=== PATIENT | male | born 1965 | race Caucasian/White ===

== ENCOUNTER 2017-05-25 11:31 | Emergency (ER) | payer OTHER ==
[2017-05-25 11:42] VITALS: PULSE 54; TEMP 98.3; BMI 27.8
--- NOTE | 2017-05-25 13:11 | PDOC ---
History of Present Illness <Ray Tanner - Last Filed: 05/25/17 14:56> - General History Source: Patient Exam Limitations: No Limitations - History of Present Illness Initial Comments: 05/25/17 13:12 51 y/o M with no PMHx presents to the ED with headache for 3 days. Patient reports drinking heavily 4 days ago and falling forward, hitting his head. He does not remember the incident because he was intoxicated, but he states his family said he did not lose consciousness. Patient was bleeding after hitting his head, and states his brother cleaned his cut with alcohol and put him to bed. Patient reports that he woke up the next morning he felt fine. However, later that day he began to have a headache and pain at the site of the laceration. His cleaned it with peroxide and AD+D. He rates the pain as a constant 7 out of 10. He took Advil with temporary relief. He also reports associated neck pain and dizziness, which is worsened with movement and walking around. Patient denies fever, chills, nausea, vomiting, diarrhea. Denies chest pain, SOB. Denies numbness, tingling, change in vision or hearing. <Nita Vergara - Last Filed: 05/25/17 14:58> - General Chief Complaint: Headache Stated Complaint: HEAD INJURY Time Seen by Provider: 05/25/17 12:29 Past History - Past Medical History Other medical history: DENIES. - Suicide/Smoking/Psychosocial Hx Smoking Status: No Smoking History: Never smoked Number of Cigarettes Smoked Daily: 0 Hx Alcohol Use: Yes Drug/Substance Use Hx: No Substance Use Type: Alcohol <Ray Tanner - Last Filed: 05/25/17 14:56> <Nita Vergara - Last Filed: 05/25/17 14:58> - Past Medical History Allergies/Adverse Reactions: Allergies Allergy/AdvReac Type Severity Reaction Status Date / Time No Known Allergies Allergy Verified 05/25/17 11:40 Home Medications: Ambulatory Orders NK [No Known Home Medication] 05/25/17 Review of Systems - Review of Systems Constitutional: No: Chills, Fever, Night Sweats HEENTM: No: Recent change in vision Respiratory: No: Shortness of Breath Cardiac (ROS): No: Chest Pain ABD/GI: No: Nausea, Vomiting Neurological: Yes: Headache. No: Tingling, Weakness, Ataxia, Dizziness All Other Systems: Reviewed and Negative <Ray Tanner - Last Filed: 05/25/17 14:56> *Physical Exam - Vital Signs Last Vital Signs Temp Pulse Resp BP Pulse Ox 98.3 F 54 L 18 163/96 99 05/25/17 11:40 05/25/17 11:40 05/25/17 11:40 05/25/17 11:40 05/25/17 11:40 <Ray Tanner - Last Filed: 05/25/17 14:56> - Vital Signs Last Vital Signs Temp Pulse Resp BP Pulse Ox 98.3 F 54 L 18 163/96 99 05/25/17 11:40 05/25/17 11:40 05/25/17 11:40 05/25/17 11:40 05/25/17 11:40 - Physical Exam Comments: 05/25/17 13:12 General: Patient is alert and in no acute distress. Speech is clear and appropriate. Head: Linear, healing, 5 cm laceration on left parietal scalp. Resolving ecchymosis but no bleeding or discharge from the site. HEENT: Pupils are equal round and reactive to light, extraocular movements are intact. The tympanic membranes are clear, no hemotympanum. No facial deformity/ tenderness, no septal hematoma. The oropharynx is clear. Neck: The trachea is midline, there is no stridor. There is no midline cervical spine tenderness, full range of motion of neck. Chest: Nontender, no ecchymosis or abrasions. Heart: S1-S2, regular rate and rhythm. No murmurs. Lungs: Clear to auscultation bilaterally. Symmetric chest rise. Abdomen: Soft/nontender/nondistended. Bowel sounds are normal. There is no abdominal or flank ecchymosis. Back/Pelvis: There is no midline spinal tenderness or step-off. Pelvis is stable and nontender. Extremities: There is no extremity deformity or joint swelling. No focal bony tenderness throughout. 2+ distal pulses throughout. Neuro: Alert and oriented x3. Cranial nerves II through XII are intact. 5 out of 5 motor strength x4 extremities. [id number] is intact. No pronator drift. Gait is stable. Skin: No abrasions/hematomas. Psych: Affect is appropriate. <Nita Vergara - Last Filed: 05/25/17 14:58> ED Treatment Course - RADIOLOGY Radiology Studies Ordered: Category Date Time Status HEAD CT WITHOUT CONTRAST [CT] Stat CT Scan 05/25/17 12:51 Ordered <Ray Tanner - Last Filed: 05/25/17 14:56> - RADIOLOGY Radiograph Interpretation: 05/25/17 14:[address] Duran Nazario Impression: No acute intracranial hemorrhage, mass effects or hydrocephalus. <Nita Vergara - Last Filed: 05/25/17 14:58> Medical Decision Making - Medical Decision Making 05/25/17 13:08 A portion of this note was documented by scribe services under my direction. I have reviewed the details of the note, within reason, and agree with the documentation with the following case summary and management plan written by me. 51-year-old male with no severe past medical history presents with persistence occipital/parietal headache in the setting of mechanical fall 3 days ago while out drinking with his family members. Patient fell and his head struck a pole, there was no loss of consciousness per family, but the patient has had persistent and progressive headaches since then without vision change/speech change/focal deficits/nausea/vomiting/confusion. Sustained scalp laceration that was Cleaned by his , no other complaints of fevers or chills. Vital signs within normal limits, blood pressure notably 160/90 Healing left parietal scalp laceration without evidence of infection or underlying bony abnormality Neurologically intact Remainder trauma exam is normal 51-year-old male with minor to moderate headache injury 3 days ago, now with persistent mild headache. Question concussion, rule out CVI. Blood pressure slightly elevated, will recheck. CT head Update tetanus Reassess 05/25/17 14:54 CT negative for TBI. Concussions precautions discussed. at bedside, understand return criteria. <Ray Tanner - Last Filed: 05/25/17 14:56> *DC/Admit/Observation/Transfer <Ray Tanner - Last Filed: 05/25/17 14:56> - Attestations Scribe Attestion: 05/25/17 13:12 Documentation prepared by Nita Vergara, acting as medical record technician for Ray Tanner MD. <Nita Vergara - Last Filed: 05/25/17 14:58> Diagnosis at time of Disposition: Superficial laceration of scalp Qualifiers: Encounter type: initial encounter Qualified Code(s): S01.01XA - Laceration without foreign body of scalp, initial encounter Closed head injury Qualifiers: Encounter type: initial encounter Qualified Code(s): S09.90XA - Unspecified injury of head, initial encounter - Discharge Dispostion Disposition: HOME Condition at time of disposition: Stable - Referrals Referrals: Casper Whitney MD [Staff Physician] - - Patient Instructions Printed Discharge Instructions: DI for Closed Head Injury, DI for Concussion Additional Instructions: Stay hydrated. Tylenol 1000 mg every 8 hours and/or ibuprofen 600 mg every 8 hours as needed for pain. Bacitracin to the wound until fully healed. Keep clean and dry. A CT scan shows no evidence of bleeding or injury. Your symptoms could be consistent with a concussion. It is recommended that you have physical rest, avoiding any activities that may increase the likelihood of you reinjuring your head. Cognitive rest is also recommended, avoid prolonged monitor exposure, reading, or loud noises. You should follow up with your primary doctor and/or a neurologist as soon as possible regarding today's emergency department visit. Return to the emergency department for any new or concerning symptoms, particularly worsening headache, vomiting or confusion, worsening sleepiness, focal weakness.
[2017-05-25] MEDS ORDERED: DIPHTH,PERTUSS(ACELL),TET 0.5 ML DISP.SYRIN IM ONE (13:16)
[2017-05-25 15:12] VITALS: BP 154/72
== END 2017-05-25 15:02 | disposition home or self-care (01) ==
LOC: JER 11:31
PROC: 3E0234Z Introduction of Serum, Toxoid and Vaccine into Muscle, Percutaneous Approach (ICD-10-PCS; principal; 2017-05-25)
DX: S01.01XA Laceration without foreign body of scalp, initial encounter (principal); W01.198A Fall on same level from slipping, tripping and stumbling with subsequent striking against other object, initial encounter; Y93.89 Activity, other specified; Y92.89 Other specified places as the place of occurrence of the external cause; Y99.8 Other external cause status
CPT/HCPCS: 70450-TC; 90471; 90715; 99283-25

== ENCOUNTER 2018-07-03 20:42 | Inpatient (IN) | payer OTHER ==
--- NOTE | 2018-07-03 21:30 | PDOC ---
Attending Attestation - HPI HPI: 07/03/18 22:01 The patient is a 52-year-old male with no significant past medical history presents to the emergency department with redness to the right hand. The patient presents with 1 day of redness and pain to the dorsum of the right hand. The patient reports he is unable to flexion his arm, reports the pain is aggravated with touching the affected area, denies any known modifying factor that alleviates the pain. Denies any injury, trauma to the hand. Denies fever, chills, chest pain, shortness of breath, urinary symptoms or changes in bowel habits. Allergies: NKDA Social history: No tobacco or IVDU reported. Reports the use of alcohol. PCP: None. - Physicial Exam PE: 07/03/18 21:54 GENERAL: Awake, alert, and fully oriented, in no acute distress HEAD: No signs of trauma EYES: PERRLA, EOMI, sclera anicteric, conjunctiva clear ENT: Auricles normal inspection, hearing grossly normal, nares patent, oropharynx clear without exudates. Moist mucosa NECK: Normal ROM, supple, no lymphadenopathy, JVD, or masses LUNGS: Breath sounds equal, clear to auscultation bilaterally. No wheezes, and no crackles HEART: Regular rate and rhythm, normal S1 and S2, no murmurs, rubs or gallops ABDOMEN: Soft, nontender, normoactive bowel sounds. No guarding, no rebound. No masses EXTREMITIES: Normal range of motion, no edema. No clubbing or cyanosis. No cords, erythema, or tenderness NEUROLOGICAL: Cranial nerves II through XII grossly intact. Normal speech, normal gait SKIN: Right hand cellulitis of the dorsum of the hand from the MCP to the wrist , dry skin across and 1 small pinpoint abrasion with skin breakdown, no fluctuance or induration, hot to touch. Rest of the exam: Warm, Dry, normal turgor, no rashes or lesions noted. - Medical Decision Making 07/03/18 21:[address] William for admission. 07/03/18 21:[address] William. <Suzanne Srinivasan - Last Filed: 07/03/18 22:01> - Resident Resident Name: Trip Cardona - ED Attending Attestation I have performed the following: I have examined & evaluated the patient, The case was reviewed & discussed with the resident, I agree w/resident's findings & plan, Exceptions are as noted - Medical Decision Making 07/03/18 21:30 I, Dr. Cindy Seay, DO, attest that this document has been prepared under my direction and personally reviewed by me in its entirety. I further attest, that it accurately reflects all work, treatment, procedures and medical decision -making performed by me. 07/03/18 22:09 a/p: 52 yo male with R hand cellulitis -no nidus, no injury -low grade fever -will send labs -will start iv abx -resident discussed the case with Dr. William who will see the patient in consult -pt will need admission for iv abx 07/03/18 22:43 cxr clear hand xray without acute findings cbc without elevated wbc pending chemistry <Cindy Seay - Last Filed: 07/04/18 00:10> Heart Score/ECG Review - ECG Intrepretation Comment:: 07/04/18 00:09 sinus at 61, nl axis, incomplete rbbb, no acute st/t wave findigns <Cindy Seay - Last Filed: 07/04/18 00:10>
[2018-07-03] MEDS ORDERED: ACETAMINOPHEN 1000 MG/100 ML VIAL (NON FORMULARY) IVPB ONE (21:50)
--- NOTE | 2018-07-03 21:54 | PDOC ---
History of Present Illness - General Chief Complaint: Redness To Affected Area Stated Complaint: SWELLING TO HAND Time Seen by Provider: 07/03/18 21:00 - History of Present Illness Initial Comments: The patient is a 52M w/ no reported PMH presents w/ 1d of R dorsal hand redness and pain. He denies any trauma/injury/abrasion to his hand. Reports pain with palpation of dorsum of wrist/hand, pain w/ flexion/extension of wrist as well as digits. No changes in sensation. Endorses recent flu-like symptoms that are resolving; Denies fevers/chills over last 3d, N/V, chest pain, SOB, abdominal pain, or other rash/lesion PMH: Denies SH: Denies tobacco; Social EtOH Meds: Denies Allergies: Denies 07/03/18 22:53 Past History - Past Medical History Allergies/Adverse Reactions: Allergies Allergy/AdvReac Type Severity Reaction Status Date / Time No Known Allergies Allergy Verified 07/03/18 20:52 Home Medications: Ambulatory Orders NK [No Known Home Medication] 05/25/17 COPD: No - Suicide/Smoking/Psychosocial Hx Smoking Status: No Smoking History: Never smoked Number of Cigarettes Smoked Daily: 0 Hx Alcohol Use: Yes Drug/Substance Use Hx: No Substance Use Type: Alcohol Review of Systems - Review of Systems Able to Perform ROS?: Yes Comments:: GENERAL/CONSTITUTIONAL: +reported recent flu; No fever or chills over last 2- 3d. No weakness HEAD, EYES, EARS, NOSE AND THROAT: No change in vision. No ear pain or discharge. No sore throat CARDIOVASCULAR: No chest pain or shortness of breath RESPIRATORY: No cough, wheezing, or hemoptysis GASTROINTESTINAL: No nausea, vomiting, diarrhea or constipation GENITOURINARY: No dysuria, frequency, or change in urination MUSCULOSKELETAL: +R wrist pain with flexion/extension SKIN: Dorsum of R hand redness/pain NEUROLOGIC: No headache, vertigo, loss of consciousness, or change in strength/ sensation ENDOCRINE: No increased thirst. No abnormal weight change HEMATOLOGIC/LYMPHATIC: No anemia, easy bleeding, or history of blood clots ALLERGIC/IMMUNOLOGIC: No hives or skin allergy 07/03/18 21:50 Is the patient limited Jamaican proficient: No *Physical Exam - Vital Signs Last Vital Signs Temp Pulse Resp BP Pulse Ox 99.9 F H 81 18 139/91 97 07/03/18 20:52 07/03/18 20:52 07/03/18 20:52 07/03/18 20:52 07/03/18 20:52 - Physical Exam Comments: GENERAL: Awake, alert, and fully oriented, in no acute distress HEAD: No signs of trauma, normocephalic, atraumatic EYES: PERRLA, EOMI, sclera anicteric, conjunctiva clear ENT: Hearing grossly normal, nares patent, oropharynx clear without exudates. Moist mucosa LUNGS: No distress, speaks full sentences, clear to auscultation bilaterally HEART: Regular rate and rhythm, normal S1 and S2, no murmurs appreciated, peripheral pulses normal and equal bilaterally ABDOMEN: Soft, nontender, normoactive bowel sounds. No guarding, no rebound EXTREMITIES : Cellulitis as below; R dorsal wrist TTP; Pain with AROM/PROM of R wrist as well as extremes of extension/flexion of digits. Compartments soft. 2+ cap refill NEUROLOGICAL: Cranial nerves II through XII grossly intact. Normal speech, normal gait, no focal sensorimotor deficits SKIN: Erythema over dorsum of R wrist from MCP to immediately proximal to carpels; Warmth w/o underlying induration or fluctuance 07/03/18 21:51 ED Treatment Course - LABORATORY CBC & Chemistry Diagram: 07/03/18 22:20 07/03/18 22:20 - RADIOLOGY Radiology Studies Ordered: Category Date Time Status CHEST X-RAY PORTABLE* [RAD] Stat Radiology 07/03/18 21:48 Ordered Medical Decision Making - Medical Decision Making The patient is a 52M who presents for evaluation of 1d of R dorsal hand cellulitis w/o fluctuance, vascular compromise, or toxic appearance ED Course CMP, CBC, T/S, blood Cx ECG R hand XR Ofirmev 1g IV once Vancomycin 1g IV for cellulitis 07/03/18 21:53 No leukocytosis No anemia XR w/o evidence of osteo, SQ emphysema, or effusion Plan for admission for IV abx for R hand cellulitis; pending chemistry results 07/03/18 22:40 Cr 1.3, no reference for baseline Lytes wnl 07/03/18 23:17 Dispo: Admit 07/03/18 23:22 *DC/Admit/Observation/Transfer Diagnosis at time of Disposition: Cellulitis Qualifiers: Site of cellulitis: extremity Site of cellulitis of extremity: upper extremity Laterality: right Qualified Code(s): L03.113 - Cellulitis of right upper limb - Discharge Dispostion Condition at time of disposition: Good Decision to Admit order: Yes - Referrals - Patient Instructions - Post Discharge Activity
--- NOTE | 2018-07-03 22:14 | CONSULT ---
Consult Consult Specialty:: Hand and Microsurgery Reason for Consultation:: hand cellulitis - History of Present Illness Chief Complaint: hand abscess History of Present Illness: 52-year-old male with no significant past medical history presents to the emergency department with redness to the right hand. The patient presents with 1 day of redness and pain to the dorsum of the right hand. The patient reports he is unable to flexion his arm, reports the pain is aggravated with touching the affected area, denies any known modifying factor that alleviates the pain. Denies any injury, trauma to the hand. Denies fever, chills, chest pain, shortness of breath, urinary symptoms or changes in bowel habits. we were asked to assess. - History Source History Provided By: Patient, Medical Record Limitations to Obtaining History: No Limitations - Alcohol/Substance Use Hx Alcohol Use: Yes - Smoking History Smoking history: Never smoked Aproximately how many cigarettes per day: 0 Home Medications - Allergies Allergies/Adverse Reactions: Allergies Allergy/AdvReac Type Severity Reaction Status Date / Time No Known Allergies Allergy Verified 07/03/18 20:52 - Home Medications Home Medications: Ambulatory Orders Amoxicillin/Potassium Clav [Augmentin 875-125 Tablet] 1 each PO BID #10 tablet 07/05/18 Review of Systems - Review of Systems Constitutional: denies: Chills, Fever Eyes: denies: Blind Spots, Recent Change in Vision HENT: denies: Difficult Swallowing, Throat Pain Neck: denies: Pain on Movement, Tenderness Cardiovascular: denies: Chest Pain, Palpitations Respiratory: denies: Cough, SOB Gastrointestinal: reports: Abdominal Pain. denies: Diarrhea, Dysphagia Genitourinary: denies: Discharge, Dysuria Breasts: reports: No Symptoms Reported. denies: Pain Musculoskeletal: denies: Muscle Cramps, Muscle Weakness Integumentary: denies: Lesions, Lump, Rash Neurological: denies: Seizure, Syncope Endocrine: denies: Unexplained Weight Gain, Unexplained Weight Loss Hematology/Lymphatic: denies: Easily Bruised, Excessive Bleeding Psychiatric: denies: Anxiety, Depression Physical Exam Vital Signs: Vital Signs Temperature 99.9 F H 07/03/18 20:52 Pulse Rate 81 07/03/18 20:52 Respiratory Rate 18 07/03/18 20:52 Blood Pressure 139/91 07/03/18 20:52 O2 Sat by Pulse Oximetry (%) 97 07/03/18 20:52 Constitutional: Yes: Well Nourished, No Distress, Calm Eyes: Yes: Conjunctiva Clear, EOM Intact HENT: Yes: Atraumatic, Normocephalic Neck: Yes: Supple, Trachea Midline Cardiovascular: Yes: Regular Rate and Rhythm, S1, S2 Respiratory: Yes: Regular, CTA Bilaterally Gastrointestinal: Yes: Normal Bowel Sounds, Soft. No: Tenderness, Tenderness, Epigastrium ...Rectal Exam: Yes: Deferred Renal/: No: CVA Tenderness - Left, CVA Tenderness - Right Breast(s): No: Dimpling, Gynecomastia, Nipple Inversion Musculoskeletal: No: Muscle Pain, Muscle Weakness Extremities: Yes: Erythema (right hand dorsum, no fluctuance). No: Cool, Cyanosis Edema: No Peripheral Pulses WNL: Yes Integumentary: No: Jaundice, Rash Neurological: Yes: Alert, Oriented Psychiatric: Yes: Alert, Oriented Problem List - Problems (1) Cellulitis of right hand Assessment/Plan: right ahnd cellulitis in a healthy male, resoling with IV antibiotics, no indication for acute surgical intervention ID consult continue PO antibiotic Thank you for the opportunity to participate in the care of this patient. Code(s): L03.113 - CELLULITIS OF RIGHT UPPER LIMB (2) Cellulitis Code(s): L03.90 - CELLULITIS, UNSPECIFIED Qualifiers: Site of cellulitis: extremity Site of cellulitis of extremity: upper extremity Laterality: right Qualified Code(s): L03.113 - Cellulitis of right upper limb
[2018-07-03 22:31] LABS: HEMATOCRIT 46.3 % (35.4-49); HEMOGLOBIN 16.4 GM/dL (11.7-16.9); MCH 31.2 pg (25.7-33.7); MCHC 35.3 g/dl (32.0-35.9); MEAN CELL VOLUME 88.3 fl (80-96); MEAN PLT VOLUME 10.1 fl (7.5-11.1); PLATELET COUNT 176 K/MM3 (134-434); RBC 5.25 M/mm3 (4.00-5.60); RDW 13.1 % (11.9-15.9); WHITE BLOOD COUNT 9.4 K/mm3 (4.0-10.0)
[2018-07-03 22:51] LABS: ALK PHOS 128 U/L (45-117); ANION GAP 6 MMOL/L (8-16); BILIRUBIN,TOTAL 0.7 mg/dL (0.2-1); BLOOD UREA NITROGEN 15 mg/dL (7-18); CALCIUM 8.9 mg/dL (8.5-10.1); CHLORIDE 104 mmol/L (98-107); CO2 29 mmol/L (21-32); CREATININE 1.3 mg/dL (0.55-1.3); GLUCOSE,RANDOM 104 mg/dL (74-106); SGOT/AST 30 U/L (15-37); SGPT/ALT 53 U/L (13-61); SODIUM 139 mmol/L (136-145); TOT PROT 7.9 g/dl (6.4-8.2)
[2018-07-03] MEDS ORDERED: ACETAMINOPHEN INJECTION 100 ML IVPB ONE (23:08)
--- NOTE | 2018-07-03 23:34 | PN ---
Teaching Attending Note Name of Resident: Melvina Thomason ATTENDING PHYSICIAN STATEMENT I saw and evaluated the patient. I reviewed the resident's note and discussed the case with the resident. I agree with the resident's findings and plan as documented. SUBJECTIVE: Patient is a 52 year old man with no significant past PMH presents to the ER with redness to the right hand. The patient presents with 1 day of redness and pain to the dorsum of the right hand. The patient reports he is unable to flexion his arm, reports the pain is aggravated with touching the affected area , denies any known modifying factor that alleviates the pain. Denies any injury , trauma to the hand. Denies fever, chills, chest pain, shortness of breath, urinary symptoms or changes in bowel habits. 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 OBJECTIVE: Alert Vital Signs Period Temp Pulse Resp BP Sys/Berg Pulse Ox Last 24 Hr 99.9 F 81 18 139/91 97 HEENT: No Jaundice, eye redness or discharge, PERRLA, EOMI. Normocephalic, atraumatic. External ears are normal and hearing is grossly intact. No nasal discharge. Neck: Supple, nontender. No palpable adenopathy or thyromegaly. No JVD Chest: Good effort. Clear to auscultation and percussion. Heart: Regular. No S3, rub or murmur Abdomen: Not distended, soft, nontender and no HSM. No rebound or guarding. Normoactive bowel sounds. Ext: Peripheral pulses intact. No leg edema. Erythema dorsum of right hand, tender and fluctuant. Pain worse with movement and clenching fist. Skin: Warm and dry. No petechiae, rash or ecchymosis. Neuro: Alert. Oriented x3. CN 2-12 grossly intact. Sensation grossly intact in all four extremities and DTR are symmetric. Home Medications Medication Instructions Recorded NK [No Known Home Medication] 05/25/17 Abnormal Lab Results 07/03/18 22:20 Anion Gap 6 L Alkaline Phosphatase 128 H ASSESSMENT AND PLAN: 1. Right hand cellulitis - Will check uric acid level, Lyme studies, get CT of hand, treat with Naprosyn and Ancef. Consult practice surgery. 2. Obesity - Will provide patient all the necessary assistance, counseling and positive reinforcement to facilitate weight loss. Consult medical csr. 3. DVT prophylaxis - Lovenox 40 mg SQ q 24 hours. 4. Advance directives - Full code
[2018-07-04] MEDS ORDERED: NAPROXEN 250 MG TABLET (FP) PO PRN (00:14)
--- NOTE | 2018-07-04 00:37 | HP ---
CHIEF COMPLAINT: R Hand pain PCP: HISTORY OF PRESENT ILLNESS: 52 y/o M with No significant PMHx presents with one day hx of R hand pain. Patient first noticed R wrist swelling accompanied by erythema and pain yesterday (07/02) at Noon. His swelling and erythema increased during the day and he tried hot water and massage which provided some relief. The pain however remained constant; described as 9/10 Throbbing pain that does not travel and is worse with any movement. Denies any recent trauma, animal bites, new pets or infestations. Patient mentions a similar episode in the past however today is more severe. Denies any accompanying fevers, chills, chest pain, SOB, nausea, vomiting, diarrhea, constipation. 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 Moist mucous membranes. NECK: No JVD LUNGS: CTAB. No wheezes, no crackles HEART: Regular rate and rhythm, normal S1 and S2 without murmur ABDOMEN: Soft, nontender, not distended, + bowel sounds, no guarding UPPER EXTREMITIES: 2+ pulses. R Dorsal wrist with 7x7cm Warm, erythematous patch , No induration, fluctuance, or active drainage, Painful with movement. Left Hand unremarkable. LOWER EXTREMITIES: No peripheral edema. NEUROLOGICAL: Cranial nerves II-XII intact. Normal speech. Normal gait. Gross sensation intact throughout. 5/5 Muscle strength to Elbow flexion/extension, Shoulder abduction, Hip flexion, Knee flexion/extension, Dorsiflexion, plantarflexion. Patient unable to perform R Handgrip, R Wrist Flexion/extension/ Sidebending due to pain. 5/5 muscle strength to Left Handgrip, Left wrist flexion/extension. SKIN: Warm, dry Laboratory Results - last 24 hr 07/03/18 07/03/18 07/03/18 22:20 22:20 22:20 WBC 9.4 RBC 5.25 Hgb 16.4 Hct 46.3 MCV 88.3 MCH 31.2 MCHC 35.3 RDW 13.1 Plt Count 176 MPV 10.1 Sodium 139 Potassium 4.0 Chloride 104 Carbon Dioxide 29 Anion Gap 6 L BUN 15 Creatinine 1.3 Creat Clearance w eGFR 58.43 Random Glucose 104 Calcium 8.9 Total Bilirubin 0.7 AST 30 ALT 53 Alkaline Phosphatase 128 H Total Protein 7.9 Albumin 4.0 Blood Type O POSITIVE Antibody Screen Negative Active Medications Enoxaparin Sodium (Lovenox -) 40 mg SQ DAILY ELIS Cefazolin Sodium 500 mg/ (Dextrose) 50 mls @ 50 mls/30 min IVPB Q8H-IV ELIS Sodium Chloride (Normal Saline -) 1,000 mls @ 100 mls/hr IV ASDIR ELIS Naproxen (Naprosyn -) 250 mg PO Q4H PRN PRN Reason: PAIN LEVEL 6-10 ASSESSMENT/PLAN: 52 y/o M with No significant PMHx presents with one day hx of R Wrist Swelling and Pain, found to have R Hand Cellulitis and will be admitted to Med-Surg #R Hand Cellulitis -Given 1 dose of Vanco in the ED -Start on Cefazolin 500mg Q8H -Hand Wrist XRay pending official Read -CT RUE without contrast ordered -IV NS @ 100 mls/hr -Pain control via Naproxen -Blood Cultures pending -Uric acid, Lyme Studies ordered -Hand Surgery (Dr. William) Consulted by ED -ID (Dr. Ng) Consulted #FEN -IV NS @ 100 mls/hr -Lytes WNL -Regular Diet #PPx -DVT: Lovenox Dispo: Admit to Med-Surg Visit type - Emergency Visit Emergency Visit: Yes ED Registration Date: 07/03/18 Care time: The patient presented to the Emergency Department on the above date and was hospitalized for further evaluation of their emergent condition. - New Patient This patient is new to me today: Yes Date on this admission: 07/04/18 - Critical Care Critical Care patient: No
[2018-07-04] MEDS: SODIUM CHLORIDE 1,000 ML IV SCH (01:28)
[2018-07-04] MEDS: CEFAZOLIN 500 MG in DEXTROSE 5%-WATER - 50 ML IVPB SCH ×3 (02:33→18:52)
[2018-07-04 06:03] LABS: EOS % 1.2 % (0-4.5); HEMATOCRIT 42.9 % (35.4-49); HEMOGLOBIN 14.3 GM/dL (11.7-16.9); LYMPH % 41.4 % (8-40); MCH 29.6 pg (25.7-33.7); MCHC 33.3 g/dl (32.0-35.9); MEAN CELL VOLUME 88.9 fl (80-96); MEAN PLT VOLUME 9.6 fl (7.5-11.1); NEUT % 41.4 % (42.8-82.8); PLATELET COUNT 143 K/MM3 (134-434); RBC 4.82 M/mm3 (4.00-5.60); WHITE BLOOD COUNT 7.5 K/mm3 (4.0-10.0)
[2018-07-04 07:08] LABS: ALBUMIN 3.2 g/dl (3.4-5.0); ALK PHOS 98 U/L (45-117); ANION GAP 6 MMOL/L (8-16); BILIRUBIN,TOTAL 0.8 mg/dL (0.2-1); BLOOD UREA NITROGEN 17 mg/dL (7-18); CALCIUM 8.3 mg/dL (8.5-10.1); CHLORIDE 108 mmol/L (98-107); CO2 26 mmol/L (21-32); GLUCOSE,RANDOM 94 mg/dL (74-106); MAGNESIUM 2.3 mg/dL (1.8-2.4); PHOSPHOROUS 4.2 mg/dL (2.5-4.9); POTASSIUM 3.9 mmol/L (3.5-5.1); SGOT/AST 28 U/L (15-37); SGPT/ALT 44 U/L (13-61); SODIUM 140 mmol/L (136-145); TOT PROT 6.6 g/dl (6.4-8.2)
[2018-07-04] MEDS: ENOXAPARIN NA (PORCINE) 40 MG/0.4 ML DISP.SYRIN SQ SCH (10:03)
--- NOTE | 2018-07-04 10:55 | EKG ---
Test Reason : Blood Pressure : / mmHG Vent. Rate : 061 BPM Atrial Rate : 061 BPM P-R Int : 164 ms QRS Dur : 100 ms QT Int : 414 ms P-R-T Axes : 042 -11 018 degrees QTc Int : 416 ms NORMAL SINUS RHYTHM INCOMPLETE RIGHT BUNDLE BRANCH BLOCK BORDERLINE ECG NO PREVIOUS ECGS AVAILABLE Confirmed by BALTA KAUFFMAN MD ([id number]) on 07/04/2018 10:54:35 AM Referred By: Confirmed By:BALTA KAUFFMAN MD
--- NOTE | 2018-07-04 12:08 | CON.ID ---
Consult Consult Specialty:: infectious diseases Referred by:: Reason for Consultation:: swelling and cellulitis of the hand - History of Present Illness Chief Complaint: pain and swellig of the hand History of Present Illness: 52 y/o M with No significant PMHx presents with one day hx of R hand pain. Patient first noticed R wrist swelling accompanied by erythema and pain yesterday (07/02) at Noon. His swelling and erythema increased during the day and he tried hot water and massage which provided some relief. The pain however remained constant; described as 9/10 Throbbing pain that does not travel and is worse with any movement. Denies any recent trauma, animal bites, new pets or infestations. Patient mentions a similar episode in the past however today is more severe. Denies any accompanying fevers, chills, chest pain, SOB, nausea, vomiting, diarrhea, constipation. - History Source History Provided By: Patient Limitations to Obtaining History: No Limitations - Alcohol/Substance Use Hx Alcohol Use: Yes - Smoking History Smoking history: Never smoked Aproximately how many cigarettes per day: 0 Home Medications - Allergies Allergies/Adverse Reactions: Allergies Allergy/AdvReac Type Severity Reaction Status Date / Time No Known Allergies Allergy Verified 07/03/18 20:52 - Home Medications Home Medications: Ambulatory Orders Amoxicillin/Potassium Clav [Augmentin 875-125 Tablet] 1 each PO BID #10 tablet 07/05/18 Review of Systems - Review of Systems Constitutional: reports: No Symptoms Eyes: reports: No Symptoms HENT: reports: No Symptoms Neck: reports: No Symptoms Cardiovascular: reports: No Symptoms Respiratory: reports: No Symptoms Gastrointestinal: reports: No Symptoms Musculoskeletal: reports: Muscle Pain, Other Integumentary: reports: Change in Color, Erythema Neurological: reports: No Symptoms Endocrine: reports: No Symptoms Hematology/Lymphatic: reports: No Symptoms Psychiatric: reports: No Symptoms Physical Exam Vital Signs: Vital Signs Temperature 98.6 F 07/04/18 09:06 Pulse Rate 60 07/04/18 09:06 Respiratory Rate 18 07/04/18 09:06 Blood Pressure 125/90 07/04/18 09:06 O2 Sat by Pulse Oximetry (%) 95 07/04/18 09:06 Constitutional: Yes: Well Nourished, Calm, Mild Distress Eyes: Yes: Conjunctiva Clear HENT: Yes: Atraumatic, Normocephalic Neck: Yes: Supple, Trachea Midline Cardiovascular: Yes: Regular Rate and Rhythm Respiratory: Yes: Regular, CTA Bilaterally Gastrointestinal: Yes: Normal Bowel Sounds, Soft Musculoskeletal: Yes: Other Extremities: Yes: Erythema, Other Neurological: Yes: Alert, Oriented Psychiatric: Yes: Alert, Oriented Labs: CBC, BMP 07/04/18 05:25 07/04/18 05:25 Imaging - Results Chest X-ray: Report Reviewed, Image Reviewed Cat Scan: Report Reviewed, Image Reviewed Assessment/Plan ASSESSMENT/PLAN: Patient is a 52 y/o male with no past medical history who is here for cellulitis of the R wrist.says it has improved sice coming to thehospital has received abx celulitis of the hand swelling of the hand erythema of the r hand pain r hand plan await for cx reports will continue abx for now will see how patient does tomorrow if he is doing well will change to oral abx
[2018-07-04] MEDS ORDERED: ACETAMINOPHEN 325 MG TABLET (FP) PO PRN (15:45)
--- NOTE | 2018-07-04 15:47 | PN ---
Physical Exam: SUBJECTIVE: Patient is a 52 y/o male with no past medical history who is here for cellulitis of the R wrist. patient reports he htinks it is getting better, but still has some pain at the site. OBJECTIVE: Vital Signs Temperature 99 F 07/04/18 15:10 Pulse Rate 77 07/04/18 15:10 Respiratory Rate 16 07/04/18 15:10 Blood Pressure 132/86 07/04/18 15:10 O2 Sat by Pulse Oximetry (%) 95 07/04/18 09:06 GENERAL: The patient is awake, alert, and fully oriented, in no acute distress. HEAD: Normal with no signs of trauma. EYES: PERRL, extraocular movements intact, LUNGS: Breath sounds equal, clear to auscultation bilaterally, no wheezes, no crackles, no accessory muscle use. HEART: Regular rate and rhythm, S1, S2 without murmur, rub or gallop. ABDOMEN: Soft, nontender, nondistended, normoactive bowel sounds, EXTREMITIES: right wrist 7 x7 cm erythematous, warm to touch, ROM intact finger strength intact 5/5 strength upper extremity PSYCH: Normal mood, normal affect. SKIN: Warm, dry, normal turgor, no rashes or lesions noted CBC, BMP 07/04/18 05:25 07/04/18 05:25 Active Medications Enoxaparin Sodium (Lovenox -) 40 mg SQ DAILY [facility] Last Admin: 07/04/18 10:03 Dose: 40 mg Cefazolin Sodium 500 mg/ (Dextrose) 50 mls @ 50 mls/30 min IVPB Q8H-IV [facility] Last Admin: 07/04/18 10:03 Dose: 50 mls/30 min Sodium Chloride (Normal Saline -) 1,000 mls @ 100 mls/hr IV ASDIR [facility] Last Admin: 07/04/18 01:28 Dose: 100 mls/hr ASSESSMENT/PLAN: Patient is a 52 y/o male with no past medical history who is here for cellulitis of the R wrist. patient reports he htinks it is getting better, but still has some pain at the site. #cellulitis of R wrist - Continue Cefazolin 500 mg q8h - f/u Bobde for ID - f/u Dr. William for wrist surgery - patient remains afebrile - acetaminophen 650 mg q6h prn for pain or fever - f/u Lyme titer - NS @ 100 - f/u morning labs - continue to monitor for function #DVT ppx - Lovenox 40 SQ Dispo: monitor clinically tomorrow Visit type - Emergency Visit Emergency Visit: Yes ED Registration Date: 07/03/18 Care time: The patient presented to the Emergency Department on the above date and was hospitalized for further evaluation of their emergent condition. - New Patient This patient is new to me today: Yes Date on this admission: 07/04/18 - Critical Care Critical Care patient: No
[2018-07-04 16:55] VITALS: BMI 29.2
--- NOTE | 2018-07-04 20:03 | PN ---
Teaching Attending Note Name of Resident: Alice Aguilar ATTENDING PHYSICIAN STATEMENT I saw and evaluated the patient. I reviewed the resident's note and discussed the case with the resident. I agree with the resident's findings and plan as documented. SUBJECTIVE: Patient is comfortable feeling better, no fever or chills, no shortness of breath. OBJECTIVE: Vital Signs Temperature 98.3 F 07/04/18 16:44 Pulse Rate 61 07/04/18 16:44 Respiratory Rate 18 07/04/18 16:44 Blood Pressure 133/79 07/04/18 16:44 O2 Sat by Pulse Oximetry (%) 98 07/04/18 16:44 GENERAL: The patient is awake, alert, and fully oriented, in no acute distress. HEAD: Normal with no signs of trauma. EYES: PERRL, extraocular movements intact, LUNGS: Breath sounds equal, clear to auscultation bilaterally, no wheezes, no crackles, no accessory muscle use. HEART: Regular rate and rhythm, S1, S2 without murmur, rub or gallop. ABDOMEN: Soft, nontender, nondistended, normoactive bowel sounds, EXTREMITIES: right wrist 7 x7 cm erythematous, warm to touch. ROM intact finger strength intact 5/5 strength upper extremity PSYCH: Normal mood, normal affect. SKIN: Warm, dry, normal turgor, no rashes or lesions noted CBCD WBC 7.5 K/mm3 (4.0-10.0) 07/04/18 05:25 RBC 4.82 M/mm3 (4.00-5.60) 07/04/18 05:25 Hgb 14.3 GM/dL (11.7-16.9) 07/04/18 05:25 Hct 42.9 % (35.4-49) 07/04/18 05:25 MCV 88.9 fl (80-96) 07/04/18 05:25 MCHC 33.3 g/dl (32.0-35.9) 07/04/18 05:25 RDW 13.0 % (11.9-15.9) 07/04/18 05:25 Plt Count 143 K/MM3 (134-434) 07/04/18 05:25 MPV 9.6 fl (7.5-11.1) 07/04/18 05:25 CMP Sodium 140 mmol/L (136-145) 07/04/18 05:25 Potassium 3.9 mmol/L (3.5-5.1) 07/04/18 05:25 Chloride 108 mmol/L (98-107) H 07/04/18 05:25 Carbon Dioxide 26 mmol/L (21-32) 07/04/18 05:25 Anion Gap 6 MMOL/L (8-16) L 07/04/18 05:25 BUN 17 mg/dL (7-18) 07/04/18 05:25 Creatinine 1.0 mg/dL (0.55-1.3) 07/04/18 05:25 Creat Clearance w eGFR > 60 (>60) 07/04/18 05:25 Random Glucose 94 mg/dL (74-106) 07/04/18 05:25 Calcium 8.3 mg/dL (8.5-10.1) L 07/04/18 05:25 Total Bilirubin 0.8 mg/dL (0.2-1) 07/04/18 05:25 AST 28 U/L (15-37) 07/04/18 05:25 ALT 44 U/L (13-61) 07/04/18 05:25 Alkaline Phosphatase 98 U/L (45-117) 07/04/18 05:25 Total Protein 6.6 g/dl (6.4-8.2) 07/04/18 05:25 Albumin 3.2 g/dl (3.4-5.0) L 07/04/18 05:25 Current Medications Generic Name Dose Route Start Last Admin Trade Name Freq PRN Reason Stop Dose Admin Acetaminophen 650 mg 07/04/18 15:45 Tylenol - PO Q6H PRN FEVER Enoxaparin Sodium 40 mg 07/04/18 10:00 07/04/18 10:03 Lovenox - SQ 40 mg DAILY ELIS Administration Cefazolin Sodium 500 mg/ 50 mls @ 50 mls/30 min 07/04/18 02:00 07/04/18 18:52 Dextrose IVPB 50 mls/30 min Q8H-IV ELIS Administration Sodium Chloride 1,000 mls @ 100 mls/hr 07/04/18 00:45 07/04/18 01:28 Normal Saline - IV 100 mls/hr ASDIR ELIS Administration Home Medications Medication Instructions Recorded NK [No Known Home Medication] 05/25/17 ASSESSMENT AND PLAN: 52 y/o M with No significant PMHx presents with one day hx of R Wrist Swelling and Pain, found to have R Hand Cellulitis and will be admitted to Med-Surg #Acute R Hand Cellulitis on Vanco /cefazolin continue, Hand Surgery (Dr. William ) Consulted by ED, ID (Dr. Ng) Consulted Regular Diet continue #DVT px: Lovenox
[2018-07-05] MEDS: CEFAZOLIN 500 MG in DEXTROSE 5%-WATER - 50 ML IVPB SCH ×2 (01:59→11:24)
[2018-07-05] MEDS: SODIUM CHLORIDE 1,000 ML IV SCH ×2 (02:00→12:45)
[2018-07-05 06:54] LABS: HEMATOCRIT 43.6 % (35.4-49); HEMOGLOBIN 14.6 GM/dL (11.7-16.9); MCH 29.7 pg (25.7-33.7); MCHC 33.6 g/dl (32.0-35.9); MEAN CELL VOLUME 88.6 fl (80-96); MEAN PLT VOLUME 10.2 fl (7.5-11.1); PLATELET COUNT 132 K/MM3 (134-434); RBC 4.92 M/mm3 (4.00-5.60); RDW 13.3 % (11.9-15.9); WHITE BLOOD COUNT 5.9 K/mm3 (4.0-10.0)
[2018-07-05 07:34] LABS: ANION GAP 7 MMOL/L (8-16); BLOOD UREA NITROGEN 16 mg/dL (7-18); CALCIUM 8.4 mg/dL (8.5-10.1); CHLORIDE 109 mmol/L (98-107); CO2 27 mmol/L (21-32); GLUCOSE,RANDOM 117 mg/dL (74-106); POTASSIUM 4.1 mmol/L (3.5-5.1); SODIUM 143 mmol/L (136-145)
[2018-07-05] MEDS ORDERED: PT OWN MED DRAWER 7, Y5N ONE (08:34)
--- NOTE | 2018-07-05 09:34 | PN ---
Teaching Attending Note Name of Resident: Alice Aguilar ATTENDING PHYSICIAN STATEMENT I saw and evaluated the patient. I reviewed the resident's note and discussed the case with the resident. I agree with the resident's findings and plan as documented. SUBJECTIVE: Patient is feeling better with no acute distress, patient wants to go home. OBJECTIVE: Vital Signs Temperature 98.2 F 07/05/18 06:00 Pulse Rate 58 L 07/05/18 06:00 Respiratory Rate 18 07/05/18 06:00 Blood Pressure 132/83 07/05/18 06:00 O2 Sat by Pulse Oximetry (%) 99 07/04/18 21:00 GENERAL: The patient is awake, alert, and fully oriented, in no acute distress. HEAD: Normal with no signs of trauma. EYES: PERRL, extraocular movements intact, LUNGS: Breath sounds equal, clear to auscultation bilaterally, no wheezes, no crackles, no accessory muscle use. HEART: Regular rate and rhythm, S1, S2 without murmur, rub or gallop. ABDOMEN: Soft, nontender, nondistended, normoactive bowel sounds, EXTREMITIES: right wrist 7 x7 cm erythematous improved, no longer warm to touch. ROM intact finger strength intact, good range of motion PSYCH: Normal mood, normal affect. SKIN: Warm, dry, normal turgor, no rashes or lesions noted CBCD WBC 5.9 K/mm3 (4.0-10.0) 07/05/18 06:00 RBC 4.92 M/mm3 (4.00-5.60) 07/05/18 06:00 Hgb 14.6 GM/dL (11.7-16.9) 07/05/18 06:00 Hct 43.6 % (35.4-49) 07/05/18 06:00 MCV 88.6 fl (80-96) 07/05/18 06:00 MCHC 33.6 g/dl (32.0-35.9) 07/05/18 06:00 RDW 13.3 % (11.9-15.9) 07/05/18 06:00 Plt Count 132 K/MM3 (134-434) L 07/05/18 06:00 MPV 10.2 fl (7.5-11.1) 07/05/18 06:00 CMP Sodium 143 mmol/L (136-145) 07/05/18 06:00 Potassium 4.1 mmol/L (3.5-5.1) 07/05/18 06:00 Chloride 109 mmol/L (98-107) H 07/05/18 06:00 Carbon Dioxide 27 mmol/L (21-32) 07/05/18 06:00 Anion Gap 7 MMOL/L (8-16) L 07/05/18 06:00 BUN 16 mg/dL (7-18) 07/05/18 06:00 Creatinine 1.0 mg/dL (0.55-1.3) 07/05/18 06:00 Creat Clearance w eGFR > 60 (>60) 07/05/18 06:00 Random Glucose 117 mg/dL (74-106) H 07/05/18 06:00 Calcium 8.4 mg/dL (8.5-10.1) L 07/05/18 06:00 Total Bilirubin 0.8 mg/dL (0.2-1) 07/04/18 05:25 AST 28 U/L (15-37) 07/04/18 05:25 ALT 44 U/L (13-61) 07/04/18 05:25 Alkaline Phosphatase 98 U/L (45-117) 07/04/18 05:25 Total Protein 6.6 g/dl (6.4-8.2) 07/04/18 05:25 Albumin 3.2 g/dl (3.4-5.0) L 07/04/18 05:25 Current Medications Generic Name Dose Route Start Last Admin Trade Name Freq PRN Reason Stop Dose Admin Acetaminophen 650 mg 07/04/18 15:45 Tylenol - PO Q6H PRN FEVER Enoxaparin Sodium 40 mg 07/04/18 10:00 07/04/18 10:03 Lovenox - SQ 40 mg DAILY ELIS Administration Cefazolin Sodium 500 mg/ 50 mls @ 50 mls/30 min 07/04/18 02:00 07/05/18 01:59 Dextrose IVPB 50 mls/30 min Q8H-IV ELIS Administration Sodium Chloride 1,000 mls @ 100 mls/hr 07/04/18 00:45 07/05/18 02:00 Normal Saline - IV 100 mls/hr ASDIR ELIS Administration Home Medications Medication Instructions Recorded NK [No Known Home Medication] 05/25/17 ASSESSMENT AND PLAN: 52 y/o M with No significant PMHx presents with one day hx of R Wrist Swelling and Pain, found to have R Hand Cellulitis and will be admitted to Med-Surg #Acute R Hand Cellulitis improved will discharge the patient on Augmentin as per ID and is ok with the surgeon to go home on oral antibiotics . follow with the surgeon in 2 weeks. (Dr. William), follow with (Dr. Ng) in a week. Discharge patient home. on oral Augmentin
[2018-07-05] MEDS: ENOXAPARIN NA (PORCINE) 40 MG/0.4 ML DISP.SYRIN SQ SCH (10:01)
--- NOTE | 2018-07-05 12:08 | PN ---
Progress Note, Physician History of Present Illness: patient doing well no issues swelling has decreased a lot movement of the hand has improved - Current Medication List Current Medications: Active Medications Acetaminophen (Tylenol -) 650 mg PO Q6H PRN PRN Reason: FEVER Enoxaparin Sodium (Lovenox -) 40 mg SQ DAILY [facility] Last Admin: 07/05/18 10:01 Dose: Not Given Cefazolin Sodium 500 mg/ (Dextrose) 50 mls @ 50 mls/30 min IVPB Q8H-IV [facility] Last Admin: 07/05/18 11:24 Dose: 50 mls/30 min Sodium Chloride (Normal Saline -) 1,000 mls @ 100 mls/hr IV ASDIR [facility] Last Admin: 07/05/18 02:00 Dose: 100 mls/hr - Objective Vital Signs: Vital Signs Temperature 97.9 F 07/05/18 10:00 Pulse Rate 55 L 07/05/18 10:00 Respiratory Rate 18 07/05/18 10:00 Blood Pressure 151/78 07/05/18 10:00 O2 Sat by Pulse Oximetry (%) 95 07/05/18 09:00 Constitutional: Yes: No Distress, Calm Cardiovascular: Yes: Regular Rate and Rhythm Respiratory: Yes: Regular, CTA Bilaterally Gastrointestinal: Yes: Normal Bowel Sounds, Soft Musculoskeletal: Yes: WNL Extremities: Yes: Erythema (resolved), Other Neurological: Yes: Alert, Oriented Psychiatric: Yes: Alert, Oriented Labs: CBC, BMP 07/05/18 06:00 07/05/18 06:00 Assessment/Plan ASSESSMENT/PLAN: Patient is a 52 y/o male with no past medical history who is here for cellulitis of the R wrist. improvin plan can switch to oral augmentin 875 mg po bid for 5 more days monitor swelling rest as per the team
--- NOTE | 2018-07-05 13:41 | DS ---
Physical Exam: SUBJECTIVE: Patient is a 52 y/o male with no past medical history who is here for cellulitis of the R wrist. Patient feels he is getting much better. Denies any fevers, chills, or nausea over night. No acute events. OBJECTIVE: Vital Signs Temperature 97.9 F 07/05/18 10:00 Pulse Rate 55 L 07/05/18 10:00 Respiratory Rate 18 07/05/18 10:00 Blood Pressure 151/78 07/05/18 10:00 O2 Sat by Pulse Oximetry (%) 95 07/05/18 09:00 PHYSICAL EXAM GENERAL: The patient is awake, alert, and fully oriented, in no acute distress. HEAD: Normal with no signs of trauma. EYES: PERRL, extraocular movements intact, LUNGS: Breath sounds equal, clear to auscultation bilaterally, no wheezes, no crackles, no accessory muscle use. HEART: Regular rate and rhythm, S1, S2 without murmur, rub or gallop. ABDOMEN: Soft, nontender, nondistended, normoactive bowel sounds, EXTREMITIES: right wrist 7 x7 cm erythematous, warm to touch, ROM intact finger strength intact 5/5 strength upper extremity PSYCH: Normal mood, normal affect. SKIN: Warm, dry, normal turgor, no rashes or lesions noted LABS CBC, BMP 07/05/18 06:00 07/05/18 06:00 HOSPITAL COURSE: Date of Admission:07/03/18 Patient was admitted for right wrist cellulitis. Patient was treated with Cefazolin IV abx for two days. Patient status improved. He will continue days of Augmentin 875. Patient was evaluated by our hand surgeon, Dr. William. Patient instructed to follow up with Dr. William as an outpatient. Patient remained afebrile, and vitals stable. Upper Extremity CT: no abscess or localized fluid, subcutaneous edema at dorsum of R hand hand/wrist XRAY: no acute pathology CXR: large heart, clavicular platting Date of Discharge: 07/05/18 Minutes to complete discharge: 35 Discharge Summary Reason For Visit: CELLULITIS Condition: Good - Instructions Diet, Activity, Other Instructions: You came to the hospital because you had a cellulitis ( infection of your skin) on your right wrist. We treated you with antibiotics. To treat your infection you will continue to take: Augmentin 875 mg by mouth twice a day for 5 days Our hand surgeon , Dr. William evaluated you as well. Please follow up with him in one week. Please follow up with your primary care physician within one week. Please return to the Emergency Department if you have any fever, nausea, vomiting, chest pain, or shortness of breath. Referrals: Tima Ng MD [Staff Physician] - 1 Week William William MD [Staff Physician] - 1 Week Disposition: HOME - Home Medications Comprehensive Discharge Medication List: Ambulatory Orders Amoxicillin/Potassium Clav [Augmentin 875-125 Tablet] 1 each PO BID #10 tablet 07/05/18 This patient is new to me today: No Emergency Visit: No Critical Care patient: No - Discharge Referral [facility]erred to [facility] No
[2018-07-05 14:45] VITALS: BP 124/75; PULSE 58; TEMP 98.5
== END 2018-07-05 16:12 | disposition home or self-care (01) | DRG 383 ==
LOC: JERFT 20:42 → JER 20:42 → JERBED 21:54 → J7W 07-04 15:59
PROVIDERS: ADMIT Internal Medicine; ATTEND Internal Medicine
DX: L03.113 Cellulitis of right upper limb (principal); E66.9 Obesity, unspecified; Z68.29 Body mass index [BMI] 29.0-29.9, adult
CPT/HCPCS: 36415; 71045-TC-FY; 73110-TC-RT-FY; 73130-TC-RT-FY; 73200-TC-RT; 80048; 80053; 83735; 84100; 84550; 85025; 85027; 86618; 86850; 86900; 86901; 87040; 93005; 93010; 99284-25; J0131; J7030